=== PATIENT | male | born 1950 | race Caucasian/White ===

== ENCOUNTER 2021-08-08 03:49 | Emergency (ER) | payer OTHER ==
[~2021-08-08] VITALS: Ht 177.8 cm; Wt 70.0 kg
[2021-08-08] MEDS ORDERED: TAMSULOSIN 0.4 MG CAP PO ONE (05:05)
[2021-08-08] MEDS ORDERED: FLOM0.4C39 PO (05:24)
[2021-08-08 06:09] VITALS: BP 146/82
== END 2021-08-08 06:10 | disposition home or self-care (01) ==
LOC: M ED 03:49
DX: R33.9 Retention of urine, unspecified (principal); F17.210 Nicotine dependence, cigarettes, uncomplicated; F12.20 Cannabis dependence, uncomplicated

== ENCOUNTER 2023-07-15 13:10 | Emergency (ER) | payer MEDICARE, OTHER ==
[~2023-07-15] VITALS: Ht 177.8 cm; Wt 71.7 kg
[~2023-07-15 13:10] MED LIST: FLOM0.4C39 PO
[2023-07-15] MEDS: LIDOCAINE 2% 5ML JELLY UROJET TOP ONE (14:20)
[2023-07-15] MEDS: NS 1,000 ML IV ONE (15:00)
[2023-07-15 15:08] LABS: BASO # 0.1 10^3/uL (0.0-0.2); BASO % 1.1 % (0.0-1.0); EOS # 0.3 10^3/uL (0.0-0.5); EOS % 3.4 % (0.0-3.0); HEMOGLOBIN 11.8 g/dl (13.5-17.5); LYMPH # 0.9 10^3/uL (1.5-5.0); LYMPH % 11.8 % (24.0-44.0); MEAN CORPUSCULAR HEMOGLOBIN 31.1 pg (27.0-33.0); MEAN CORPUSCULAR HGB CONC 32.8 g/dl (32.0-36.5); MONO # 0.7 10^3/uL (0.0-0.8); MONO % 10.1 % (2.0-8.0); NEUTROPHILS # 5.3 10^3/uL (1.5-8.5); NEUTROPHILS % 73.5 % (36.0-66.0); PLATELET COUNT, AUTOMATED 111 10^3/uL (150-450); RED BLOOD COUNT 3.79 10^6/uL (4.30-6.10); WHITE BLOOD COUNT 7.3 10^3/uL (4.0-10.0)
[2023-07-15 15:37] LABS: ALBUMIN 4.1 G/DL (3.2-5.2); ALKALINE PHOSPHATASE 102 U/L (46-116); ALT/SGPT 12 U/L (7.0-40); AST/SGOT 16 U/L (<34); BILIRUBIN,TOTAL 0.6 MG/DL (0.3-1.2); BLOOD UREA NITROGEN 21 MG/DL (9-23); CALCIUM LEVEL 8.9 MG/DL (8.3-10.6); CARBON DIOXIDE LEVEL 26 MMOL/L (20-31); CHLORIDE LEVEL 106 MMOL/L (98-107); CREATININE FOR GFR 1.02 MG/DL (0.70-1.30); GLOMERULAR FILTRATION RATE > 60.0 (>42); GLUCOSE, FASTING 102 MG/DL (74-106); POTASSIUM SERUM 3.9 MMOL/L (3.5-5.1); SODIUM LEVEL 140 MMOL/L (136-145); TOTAL PROTEIN 7.2 G/DL (5.7-8.2)
[2023-07-15] MEDS ORDERED: LACT10SO3 PO (17:21)
[2023-07-15 17:29] VITALS: BP 157/83; TEMP 98.1; O2SAT 98
== END 2023-07-15 17:43 | disposition home or self-care (01) ==
LOC: M ED 13:10
DX: R33.9 Retention of urine, unspecified (principal); K59.00 Constipation, unspecified; J44.9 Chronic obstructive pulmonary disease, unspecified; F17.200 Nicotine dependence, unspecified, uncomplicated

== ENCOUNTER 2023-07-20 08:02 | Emergency (ER) | payer MEDICARE ==
[~2023-07-20] VITALS: Ht 177.8 cm; Wt 72.3 kg
[~2023-07-20 08:02] MED LIST changes: +LACT10SO3 PO
[2023-07-20] MEDS: LIDOCAINE 2% 5ML JELLY UROJET TOP ONE (09:31)
[2023-07-20] MEDS ORDERED: GABA-1171 PO (12:05)
[2023-07-20] MEDS ORDERED: BREO1INH INH (12:05)
[2023-07-20] MEDS ORDERED: SPIR12.9 INH (12:05)
[2023-07-20] MEDS ORDERED: PROA1AER2 INH (12:05)
[2023-07-20] MEDS ORDERED: HOME MED LIST COMPLETE! XX SCH (12:05)
[2023-07-20] MEDS ORDERED: FLOM0.4C39 PO (12:42)
[2023-07-20 13:10] VITALS: BP 130/75; TEMP 98.2; O2SAT 99
== END 2023-07-20 13:17 | disposition home or self-care (01) ==
LOC: M ED 08:02
DX: N40.1 Benign prostatic hyperplasia with lower urinary tract symptoms (principal); R33.9 Retention of urine, unspecified; J44.9 Chronic obstructive pulmonary disease, unspecified; F17.200 Nicotine dependence, unspecified, uncomplicated